=== PATIENT | female | born 1990 | race Caucasian/White ===

== ENCOUNTER 2016-03-21 07:02 | Inpatient (IN) | payer MEDICAID ==
[~2016-03-21] VITALS: Ht 162.6 cm; Wt 75.5 kg
[~2016-03-21 07:02] MED LIST: AMOXICILLIN 50500 MG PO; MOTRIN 600600 MG/TAB PO; NORCO 325 MG-51 TAB PO; PERCOCET 325 MG1 TA2 PO; PRENATAL1 TA1 PO
[2016-05-15] VITALS (19 sets, daily range): BP systolic 101–132; BP diastolic 50–76; PULSE 61–79; TEMP 97.7–98.2
[2016-05-15 09:21] LABS: BASO % 0.2 % (0.0-2.0); EOS # 0.1 (0.0-0.7); EOS % 1.1 % (0-4.0); GRAN # 5.4 (1.4-6.5); GRAN % 63.9 % (42.2-75.2); LYMPH # 2.2 (1.2-3.4); LYMPH % 26.2 % (20.0-51.0); MEAN CELL VOLUME 91 fl (80.0-100.0); MEAN CORPUSCULAR HGB CONC 35 g/dl (33.0-37.0); MEAN PLATELET VOLUME 9.2 fl (7.4-10.4); MONO # 0.6 (0.1-0.6); MONO % 7.4 % (1.7-9.3); PLATELET COUNT 197 K/mm3 (130-400); RED BLOOD COUNT 3.71 M/mm3 (4.10-5.30); REDCELL DISTRIBUTION WIDTH-CV 12.7 % (11.5-14.5); WHITE BLOOD COUNT 8.4 K/mm3 (4.8-10.8)
[2016-05-15 09:40] LABS: HEMATOCRIT 33.9 % (37.0-47.0); HEMOGLOBIN 11.9 g/dl (12.5-16.0); MEAN CORPUSCULAR HEMOGLOBIN 32 pg (27.0-31.0)
[2016-05-16 01:30] VITALS: BP 111/68; PULSE 57; TEMP 97.6
[2016-05-16 07:07] LABS: HEMATOCRIT 32.1 % (37.0-47.0)
[2016-05-16 08:08] VITALS: BP 114/61; PULSE 68; TEMP 97.4
[2016-05-16 17:17] VITALS: BP 140/65; PULSE 68; TEMP 97.9
[2016-05-16 18:40] VITALS: BP 118/76; PULSE 66; TEMP 97.9
[2016-05-17] MEDS ORDERED: IBU600 MG PO (07:29)
[2016-05-17] MEDS ORDERED: PERCOCET 325 MG1 TA2 PO (07:30)
[2016-05-17 08:00] VITALS: BP 113/67; PULSE 65; TEMP 99.1
[2016-05-17 15:15] VITALS: BP 121/70; PULSE 63; TEMP 98.1
== END 2016-05-17 16:45 | disposition home or self-care (01) | DRG 766 ==
LOC: EDSTATUS 07:02 → LDRO 10:01 → OB 05-15 07:05
PROVIDERS: Obstetrics & Gynecology
PROC: 10D00Z1 Extraction of Products of Conception, Low, Open Approach (ICD-10-PCS; principal; 2016-05-15)
DX: O34.211 Maternal care for low transverse scar from previous cesarean delivery (principal); N85.8 Other specified noninflammatory disorders of uterus; O48.0 Post-term pregnancy; R87.612 Low grade squamous intraepithelial lesion on cytologic smear of cervix (LGSIL); Z3A.40 40 weeks gestation of pregnancy; Z37.0 Single live birth
CPT/HCPCS: J0690; J1885; J2270; J2405; J2590; J7120